=== PATIENT | female | born 1995 | race Two or more races ===

== ENCOUNTER 2017-05-26 11:46 | Emergency (ER) | payer BC ==
[~2017-05-26] VITALS: Ht 157.5 cm; Wt 131.5 kg
[~2017-05-26 11:46] MED LIST: CYCL10TA2 PO; IBUP-1007 PO
[2017-05-26 12:04] VITALS: BP 162/106
--- NOTE | 2017-05-26 12:43 | PHYS DOC ---
Past Medical History Past Medical History: No Pertinent History Additional Past Medical Histor: Kidney Problem. Past Surgical History: Tonsillectomy, Other Additional Past Surgical Histo: Nephrectomy Alcohol Use: None Drug Use: None Adult General Chief Complaint Chief Complaint: MULTIPLE COMPLAINTS [facility] HPI Patient is a 21 year old female presents to the emergency department stating that she was at work when she felt that she's been extremely tired. She states that she has a headache on the right side of her head and in the right occipital area. She is also complaining of congestion with a sore throat. She states that today when she was turning she developed numbness on the left side of her nose her left lips and felt that her left hand was numb. She states that she has weakness in the left hand. Patient states she did take an Excedrin for her headache which made the headache pain worse. She does state that she has maxillary sinus pressure on the right. She continues to state that she had double vision. Patient's blood pressure was elevated here in the emergency department. She denies chest pain however does state that she's had a cough and feels somewhat short of air. Patient states that she did take NyQuil last night. Review of Systems Review of Systems Constitutional: Denies fever or chills [] Eyes: Denies change in visual acuity, redness, or eye pain complain of double vision HENT: Congestion with sore throat Respiratory: Complaining of cough and occasional shortness of air Cardiovascular: No additional information not addressed in HPI [] GI: Denies abdominal pain, nausea, vomiting, bloody stools or diarrhea [] : Denies dysuria or hematuria [] Musculoskeletal: Denies back pain or joint pain [] Integument: Denies rash or skin lesions [] Neurologic: headache, denies focal weakness or sensory changes [] Endocrine: Denies polyuria or polydipsia [] Current Medications Current Medications Current Medications Medications (Trade) Dose Ordered Sig/Kaitlin Start Time Stop Time Status Last Admin Dose Admin Ibuprofen (Motrin) 800 mg 1X ONCE 05/26/17 14:00 05/26/17 14:01 DC 05/26/17 14:04 800 MG Pseudoephedrine HCl (Sudafed) 30 mg 1X ONCE 05/26/17 14:00 05/26/17 14:01 DC 05/26/17 14:03 30 MG Allergies Allergies Allergies Coded Allergies Type Severity Reaction Last Updated Verified No Known Drug Allergies 04/10/15 No Physical Exam Physical Exam Constitutional: Well developed, well nourished, no acute distress, non-toxic appearance. [] HENT: Normocephalic, atraumatic, bilateral external ears normal, oropharynx moist, no oral exudates, nose normal. Bilateral tympanic membranes appear to be normal. Throat with redness and postnasal drip noted. No exudate was noted. Anterior cervical adenopathy negative Eyes: PERRLA, EOMI, conjunctiva normal, no discharge. [] Neck: Normal range of motion, no tenderness, supple, no stridor. [] Cardiovascular:Heart rate regular rhythm, no murmur [] Lungs & Thorax: Bilateral breath sounds clear to auscultation [] Skin: Warm, dry, no erythema, no rash. [] Back: No tenderness Extremities: No tenderness, no cyanosis, no clubbing, ROM intact, no edema. Peripheral pulses 2+ cap refill brisk less than 2 seconds. Neurologic: Alert and oriented X 3, normal motor function, normal sensory function, no focal deficits noted. Cranial nerves II through XII intact. 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 Stroke scale is 0 Psychologic: Affect normal, judgement normal, mood normal. [] Current Patient Data Vital Signs Vital Signs Date Time Temp Pulse Resp B/P (MAP) Pulse Ox O2 Delivery O2 Flow Rate FiO2 05/26/17 12:04 99.0 80 20 99 Room Air 99.0 Lab Values Laboratory Tests Test 05/26/17 12:57 05/26/17 13:00 05/26/17 14:15 POC Urine HCG, Qualitative Hcg negative (Negative) Urine Collection Type Unknown Urine Color Red Urine Clarity Cloudy Urine pH 7.5 Urine Specific [place] 1.010 Urine Protein mg/dL (NEG-TRACE) Urine Glucose (UA) Negative mg/dL (NEG) Urine Ketones (Stick) mg/dL (NEG) Urine Blood Large (NEG) Urine Nitrite Negative (NEG) Urine Bilirubin Negative (NEG) Urine Urobilinogen Dipstick 0.2 mg/dL (0.2 mg/dL) Urine Leukocyte Esterase (NEG) Urine RBC >40 /HPF (0-2) Urine WBC 0 /HPF (0-4) Urine Bacteria 0 /HPF (0-FEW) White Blood Count 13.6 x10^3/uL (4.0-11.0) H Red Blood Count 4.09 x10^6/uL (3.50-5.40) Hemoglobin 11.1 g/dL (12.0-15.5) L Hematocrit 33.0 % (36.0-47.0) L Mean Corpuscular Volume 81 fL (79-100) Mean Corpuscular Hemoglobin 27 pg (25-35) Mean Corpuscular Hemoglobin Concent 34 g/dL (31-37) Red Cell Distribution Width 14.8 % (11.5-14.5) H Platelet Count 333 x10^3/uL (140-400) Neutrophils (%) (Auto) 72 % (31-73) Lymphocytes (%) (Auto) 19 % (24-48) L Monocytes (%) (Auto) 6 % (0-9) Eosinophils (%) (Auto) 2 % (0-3) Basophils (%) (Auto) 1 % (0-3) Neutrophils # (Auto) 9.7 x10^3uL (1.8-7.7) H Lymphocytes # (Auto) 2.6 x10^3/uL (1.0-4.8) Monocytes # (Auto) 0.9 x10^3/uL (0.0-1.1) Eosinophils # (Auto) 0.3 x10^3/uL (0.0-0.7) Basophils # (Auto) 0.1 x10^3/uL (0.0-0.2) Sodium Level 140 mmol/L (136-145) Potassium Level 4.2 mmol/L (3.5-5.1) Chloride Level 106 mmol/L (98-107) Carbon Dioxide Level 27 mmol/L (21-32) Anion Gap 7 (6-14) Blood Urea Nitrogen 12 mg/dL (7-20) Creatinine 1.1 mg/dL (0.6-1.0) H Estimated GFR (Cockcroft-Gault) 63.3 BUN/Creatinine Ratio 11 (6-20) Glucose Level 95 mg/dL (70-99) Calcium Level 8.5 mg/dL (8.5-10.1) Total Bilirubin 0.4 mg/dL (0.2-1.0) Aspartate Amino Transferase (AST) 26 U/L (15-37) Alanine Aminotransferase (ALT) 47 U/L (14-59) Alkaline Phosphatase 99 U/L (46-116) Total Protein 6.9 g/dL (6.4-8.2) Albumin 3.1 g/dL (3.4-5.0) L Albumin/Globulin Ratio 0.8 (1.0-1.7) L Laboratory Tests 05/26/17 14:15 Laboratory Tests 05/26/17 14:15 EKG EKG EKG completed at 1304 with a HR 74 SR noted no STEMI per Dr Kong[] Radiology/Procedures Radiology/Procedures [][facility] [address] [place], [place] [id number] IMAGING REPORT Signed PATIENT: ELENITA JUNG ACCOUNT: [id number] : 1995 LOCATION: ER AGE: 21 SEX: F EXAM STATUS: REG ER ORD. PHYSICIAN: LESLIE CROOK APRN REASON: headache, elevated BP numbness left side of nose, lip and left hand PROCEDURE: CT HEAD WO CONTRAST Indication hypertension. Headaches. Numbness. Axial noncontrast images of the head were obtained. No prior imaging is available. The calvarium appears unremarkable and the visualized paranasal sinuses appear normal. There is slightly diminished aeration of mastoid air cells. Clinical correlation advised. There is no subdural or epidural hematoma. There is no mass or midline shift. No hemorrhage is seen. No acute or significant finding is apparent. IMPRESSION: Normal study PQRS Compliance Statement: One or more of the following individualized dose reduction techniques were utilized for this examination: 1. Automated exposure control 2. Adjustment of the mA and/or kV according to patient size 3. Use of iterative reconstruction technique DICTATED and SIGNED BY: NELY JORDAN MD DATE: 05/26/17 1328 CC: LESLIE CROOK APRN; BRYAN GARCIA; NON,STAFF ~ Course & Med Decision Making Course & Med Decision Making Pertinent Labs and Imaging studies reviewed. (See chart for details) Patient's CBC was normal with a slightly elevated white count. Urine was positive for blood. CMP was normal. CT scan of the head was normal blood pressure is 129 over 70s. Patient states that she feels much better. She states that she has been under a lot of stress. 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 Signs and symptoms to return back to emergency department been provided. All questions and concerns been answered. Patient agrees with discharge instructions treatment regimens and follow-up recommendations. [] Dragon Disclaimer Dragon Disclaimer This electronic medical record was generated, in whole or in part, using a voice recognition dictation system. Departure Departure Impression: Primary Impression: Headache Additional Impression: URI (upper respiratory infection) Disposition: HOME, SELF-CARE Condition: STABLE Referrals: BRYAN GARCIA (PCP) Patient Instructions: General Headache Without Cause, Upper Respiratory Infection, Adult, [id number] Additional Instructions: Activity as tolerated Medication as prescribed Sudafed and Mucinex DM as directed by manufacture. Drink plenty of fluids Followup with primary care provider Return to emergency department as needed for signs and symptoms that become worse Scripts Amoxicillin/Potassium Clav (AUGMENTIN 875-125 TABLET) 1 Each Tablet 1 TAB PO BID, #20 TAB Prov: LESLIE CROOK WHOLESALE BUYER 05/26/17 Problem Qualifiers Primary Impression: Headache Headache type: unspecified Headache chronicity pattern: unspecified pattern Intractability: not intractable Qualified Codes: R51 - Headache Additional Impression: URI (upper respiratory infection) URI type: unspecified URI Qualified Codes: J06.9 - Acute upper respiratory infection, unspecified LESLIE CROOK WHOLESALE BUYER May 26, 2017 12:43
--- NOTE | 2017-05-26 13:10 | EKG ---
[facility] [address] [place] [address] Test Date: 2017-05-26 Test Time: 13:04:06 Pat Name: ELENITA JUNG Department: Room: Gender: F Stay Cutter: : 1995 Requested By: LESLIE CROOK Order Number: [id number] Reading MD: Latisha Mccain Measurements Intervals [place] Rate: 74 P: 50 ND: 146 QRS: 77 QRSD: 84 T: 44 QT: 352 QTc: 391 Interpretive Statements SINUS RHYTHM NORMAL EKG Electronically Signed On 05-28-2017 19:05:24 CDT by Latisha Mccain
[2017-05-26 13:12] LABS: BILIRUBIN,URINE NEGATIVE (NEG); GLUCOSE,URINE NEGATIVE (NEG); NITRITE,URINE NEGATIVE (NEG); PH,URINE 7.5; UROBILINOGEN,URINE 0.2 mg/dL (0.2 mg/dL)
[2017-05-26 13:20] LABS: BACTERIA,URINE 0 /HPF (0-FEW); RBC,URINE >40 /HPF (0-2); WBC,URINE 0 /HPF (0-4)
--- NOTE | 2017-05-26 13:29 | RAD ---
Indication hypertension. Headaches. Numbness. Axial noncontrast images of the head were obtained. No prior imaging is available. The calvarium appears unremarkable and the visualized paranasal sinuses appear normal. There is slightly diminished aeration of mastoid air cells. Clinical correlation advised. There is no subdural or epidural hematoma. There is no mass or midline shift. No hemorrhage is seen. No acute or significant finding is apparent. IMPRESSION: Normal study PQRS Compliance Statement: One or more of the following individualized dose reduction techniques were utilized for this examination: 1. Automated exposure control 2. Adjustment of the mA and/or kV according to patient size 3. Use of iterative reconstruction technique
[2017-05-26] MEDS ORDERED: PSEUDOEPHEDRINE 30 MG TABLET. PO ONE (14:00)
[2017-05-26] MEDS ORDERED: IBUPROFEN 800 MG TABLET. PO ONE (14:00)
[2017-05-26 14:27] LABS: BASO # 0.1 x10^3/uL (0.0-0.2); BASO % 1 % (0-3); EOS % 2 % (0-3); HEMOGLOBIN 11.1 g/dL (12.0-15.5); LYMPH # 2.6 x10^3/uL (1.0-4.8); LYMPH % 19 % (24-48); MEAN CORPUSCULAR HEMOGLOBIN 27 pg (25-35); MEAN CORPUSCULAR HGB CONC 34 g/dL (31-37); MEAN CORPUSCULAR VOLUME 81 fL (79-100); MONO % 6 % (0-9); NEUT % 72 % (31-73); PLATELET COUNT 333 x10^3/uL (140-400); RED BLOOD COUNT 4.09 x10^6/uL (3.50-5.40); RED CELL DISTRIBUTION WIDTH 14.8 % (11.5-14.5); WHITE BLOOD COUNT 13.6 x10^3/uL (4.0-11.0)
[2017-05-26 14:35] LABS: CALCIUM 8.5 mg/dL (8.5-10.1); CREATININE 1.1 mg/dL (0.6-1.0); GFR 63.3; POTASSIUM 4.2 mmol/L (3.5-5.1)
[2017-05-26 14:41] LABS: ALBUMIN 3.1 g/dL (3.4-5.0); ALBUMIN/GLOBULIN RATIO 0.8 (1.0-1.7); TOTAL BILIRUBIN 0.4 mg/dL (0.2-1.0); TOTAL PROTEIN 6.9 g/dL (6.4-8.2)
[2017-05-26] MEDS ORDERED: AMOX1TAB61 PO (15:11)
[2017-05-26] MEDS ORDERED: METOCLOPRAMIDE 10 MG TABLET. PO ONE (15:15)
[2017-05-26] MEDS ORDERED: diphenhydrAMINE HCL 25 MG CAPSULE PO ONE (15:15)
== END 2017-05-26 15:47 | disposition home or self-care (01) ==
LOC: ER 11:46
DX: R51 Headache (principal); J06.9 Acute upper respiratory infection, unspecified
CPT/HCPCS: 36415; 70450; 80053; 81001; 81025; 85025; 93005; 99285; J8597; Q0163

== ENCOUNTER 2018-01-19 15:13 | Emergency (ER) | payer BC ==
[2018-01-19] MEDS: LIDOCAINE WITH 8.4% SOD BICARB 3 ML DISP.SYRIN. INJ (16:00)
== END 2018-01-19 16:18 | disposition home or self-care (01) ==
LOC: ER 15:13
DX: L02.31 Cutaneous abscess of buttock (principal)
CPT/HCPCS: 10060; 99283

== ENCOUNTER 2021-07-30 16:18 | Emergency (ER) | payer BC, OTHER ==
[~2021-07-30] VITALS: Ht 170.2 cm; Wt 140.9 kg
[~2021-07-30 16:18] MED LIST changes: +AMOX1TAB61 PO; +CEPH500C PO; +CYCL10TA19 PO; -CYCL10TA2 PO; +HYDR-3164 PO; +SULF1TAB24 PO
[2021-07-30] MEDS ORDERED: LISINOPRIL 10 MG TABLET PO ONE (17:15)
[2021-07-30] MEDS ORDERED: LISINOPRIL 10 MG TABLET ONE (17:22)
--- NOTE | 2021-07-30 17:37 | PHYS DOC ---
Past Medical History Past Medical History: No Pertinent History Additional Past Medical Histor: CKD, PTSD, preclampsia (TORI WETZEL) Past Surgical History: , Tonsillectomy, Other Additional Past Surgical Histo: nephrectomy- R (TORI WETZEL) Smoking Status: Current Every Day Smoker Alcohol Use: None Drug Use: None (TORI WETZEL) General Adult EDM: Chief Complaint: NOSEBLEED HPI: HPI: Patient is a 25 year old female who presents with intermittent nosebleed for the past 3 days. Patient reports that her nose will bleed 23 times per day for a period of about 30 minutes for the past 3 days. Today, she was driving when it began bleeding. She got anxious and pulled over. She denies active bleeding while in the emergency department, but is concerned that this happens repeatedly. Patient denies weakness, lightheadedness, headache (TORI WETZEL) Review of Systems: Review of Systems: Constitutional: Denies fever or chills. Eyes: Denies change in visual acuity or visual field deficits. HENT: See HPI Respiratory: Denies cough or shortness of breath. Cardiovascular: Denies chest pain or edema. GI: Denies abdominal pain, nausea, vomiting, bloody stools or diarrhea. : Denies dysuria or hematuria. Musculoskeletal: Denies back pain or joint pain. Integument: Denies rash or other skin lesions. Neurologic: Denies headache, focal weakness or sensory changes. (TORI WETZEL) Heart Score: C/O Chest Pain: No (TORI WETZEL) Current Medications: Current Medications Medications (Trade) Dose Ordered Sig/Kaitlin Start Time Stop Time Status Last Admin Dose Admin Lisinopril (Prinivil) 10 mg STK-MED ONCE 07/30/21 17:22 07/30/21 17:24 DC (TORI WETZEL) Allergies: Allergies: Allergies Coded Allergies Type Severity Reaction Last Updated Verified No Known Drug Allergies 04/10/15 No (TORI WETZEL) Physical Exam: PE: Constitutional: Morbidly obese, well groomed, no acute distress, non-toxic appearance. HENT: Normocephalic, atraumatic, bilateral external ears normal, oropharynx moist, some blood noted in posterior oropharynx, nose without obvious deformity or active bleeding, bilateral nares enlarged and erythematous turbinates, dried blood noted in right naris. Eyes: PERRLA, EOMI, conjunctiva normal, no discharge. Neck: Normal range of motion, no tenderness, supple, no stridor. Cardiovascular: Heart rate regular rhythm, no murmur. Lungs & Thorax: Bilateral breath sounds clear to auscultation. Skin: Warm, dry, no erythema, no rash. Neurologic: Alert and oriented x4, no focal deficits noted. (TORI WETZEL) Current Patient Data: Labs: Laboratory Tests Test 07/30/21 17:30 07/30/21 17:40 07/30/21 17:52 White Blood Count 10.0 x10^3/uL (4.0-11.0) Red Blood Count 4.18 x10^6/uL (3.50-5.40) Hemoglobin 12.0 g/dL (12.0-15.5) Hematocrit 36.4 % (36.0-47.0) Mean Corpuscular Volume 87 fL (79-100) Mean Corpuscular Hemoglobin 29 pg (25-35) Mean Corpuscular Hemoglobin Concent 33 g/dL (31-37) Red Cell Distribution Width 15.8 % (11.5-14.5) Platelet Count 344 x10^3/uL (140-400) Neutrophils (%) (Auto) 64 % (31-73) Lymphocytes (%) (Auto) 25 % (24-48) Monocytes (%) (Auto) 8 % (0-9) Eosinophils (%) (Auto) 2 % (0-3) Basophils (%) (Auto) 1 % (0-3) Neutrophils # (Auto) 6.4 x10^3/uL (1.8-7.7) Lymphocytes # (Auto) 2.5 x10^3/uL (1.0-4.8) Monocytes # (Auto) 0.8 x10^3/uL (0.0-1.1) Eosinophils # (Auto) 0.2 x10^3/uL (0.0-0.7) Basophils # (Auto) 0.1 x10^3/uL (0.0-0.2) Sodium Level 138 mmol/L (136-145) Potassium Level 4.3 mmol/L (3.5-5.1) Chloride Level 103 mmol/L (98-107) Carbon Dioxide Level 29 mmol/L (21-32) Anion Gap 6 (6-14) Blood Urea Nitrogen 23 mg/dL (7-20) Creatinine 1.4 mg/dL (0.6-1.0) Estimated GFR (Cockcroft-Gault) 46.2 BUN/Creatinine Ratio 16 (6-20) Glucose Level 101 mg/dL (70-99) Calcium Level 8.6 mg/dL (8.5-10.1) Total Bilirubin 0.5 mg/dL (0.2-1.0) Aspartate Amino Transf (AST/SGOT) 23 U/L (15-37) Alanine Aminotransferase (ALT/SGPT) 39 U/L (14-59) Alkaline Phosphatase 122 U/L (46-116) Total Protein 6.8 g/dL (6.4-8.2) Albumin 3.0 g/dL (3.4-5.0) Albumin/Globulin Ratio 0.8 (1.0-1.7) Urine Collection Type Unknown Urine Color Yellow Urine Clarity Cloudy Urine pH 6.5 (<5.0-8.0) Urine Specific [place] 1.015 (1.000-1.030) Urine Protein >=300 mg/dL (NEG-TRACE) Urine Glucose (UA) Negative mg/dL (NEG) Urine Ketones (Stick) Negative mg/dL (NEG) Urine Blood Small (NEG) Urine Nitrite Positive (NEG) Urine Bilirubin Negative (NEG) Urine Urobilinogen Dipstick 0.2 mg/dL (0.2 mg/dL) Urine Leukocyte Esterase Moderate (NEG) Urine RBC 1-2 /HPF (0-2) Urine WBC >40 /HPF (0-4) Urine Squamous Epithelial Cells Mod /LPF Urine Bacteria Moderate /HPF (0-FEW) Bedside Urine HCG, Qualitative Hcg negative (Negative) Vital Signs: Vital Signs Date Time Temp Pulse Resp B/P (MAP) Pulse Ox O2 Delivery O2 Flow Rate FiO2 07/30/21 17:57 102 18 201/95 (130) 98 Room Air 07/30/21 17:36 101 221/118 07/30/21 17:15 101 18 221/118 (152) 98 Room Air 07/30/21 16:30 98.4 102 20 222/109 (146) 100 Room Air 98.4 (TORI WETZEL) Course & Med Decision Making: Course & Med Decision Making Pertinent Labs and Imaging studies reviewed. (See chart for details) Patient is a 25-year-old female with history of hypertension and chronic kidney disease with right nephrectomy who presents with nosebleed intermittent for the past 3 days. Incidentally, her blood pressure is very high. Patient states that she takes hydrochlorothiazide only. She has not seen her primary care doctor in about 2 years, as after her preeclampsia and delivery, going to the doctor makes her extremely nervous. Patient's creatinine has gone up by 0.3 since her last visit in 2017. Patient's urine shows potential infection, however patient denies all symptoms. No treatment necessary at this time as she is non and not experiencing any symptoms of UTI. Patient's nosebleed did resume briefly while in the department. With nasal bridge pressure, the bleeding stopped. Patient does request medication going forward in case it does begin again. Had a long discussion with the patient about obtaining primary care and the importance of getting her blood pressure under control. She does request discharge and to go home. I discussed the risks of uncontrolled high blood pressure both short-term and long-term. She was provided with a list of primary care providers attached to the hospital, which she also requested. Patient understands and is agreeable to discharge plan. (TORI WETZEL) Dragon Disclaimer: Dragon Disclaimer: This electronic medical record was generated, in whole or in part, using a voice recognition dictation system. (TORI WETZEL) Departure Departure Impression: Primary Impression: Frequent epistaxis Additional Impression: High blood pressure with chronic kidney disease Qualified Codes: I12.9 - Hypertensive chronic kidney disease with stage 1 through stage 4 chronic kidney disease, or unspecified chronic kidney disease Disposition: HOME / SELF CARE / HOMELESS Condition: STABLE Referrals: NO PCP (PCP) Scripts Oxymetazoline Hcl (AFRIN) 30 Ml [place] 2 SPRAY NS PRN, #1 BOTTLE Use 2 sprays per nostril as needed for epistaxis. Prov: TORI WETZEL 07/30/21 Clonidine Hcl (CLONIDINE HCL) 0.1 Mg Tablet 1 TAB PO PRN, #20 TAB 0 Refills Take 1 tablet by mouth twice per day for blood pressure reading greater than 185/105 (If either number is above this limit, take the medication). Prov: TORI WETZEL 07/30/21 Attending Signature Attending Signature I have reviewed the PA/STERILE SUPERVISOR's note and plan of care. I was available for consultation as needed during the patient's visit in the emergency department. I agree with the clinical impression, plan, and disposition. (DYLAN CARROLL DO) TORI WETZEL Jul 30, 2021 17:37 DYLAN CARROLL DO Jul 31, 2021 23:47
[2021-07-30 17:45] LABS: BASO # 0.1 x10^3/uL (0.0-0.2); BASO % 1 % (0-3); EOS # 0.2 x10^3/uL (0.0-0.7); EOS % 2 % (0-3); HEMATOCRIT 36.4 % (36.0-47.0); LYMPH # 2.5 x10^3/uL (1.0-4.8); LYMPH % 25 % (24-48); MEAN CORPUSCULAR HEMOGLOBIN 29 pg (25-35); MEAN CORPUSCULAR HGB CONC 33 g/dL (31-37); MEAN CORPUSCULAR VOLUME 87 fL (79-100); MONO # 0.8 x10^3/uL (0.0-1.1); MONO % 8 % (0-9); NEUT # 6.4 x10^3/uL (1.8-7.7); NEUT % 64 % (31-73); PLATELET COUNT 344 x10^3/uL (140-400); RED BLOOD COUNT 4.18 x10^6/uL (3.50-5.40); RED CELL DISTRIBUTION WIDTH 15.8 % (11.5-14.5)
[2021-07-30 17:53] LABS: CALCIUM 8.6 mg/dL (8.5-10.1); CREATININE 1.4 mg/dL (0.6-1.0); GFR 46.2; POTASSIUM 4.3 mmol/L (3.5-5.1)
[2021-07-30 17:59] LABS: BILIRUBIN,URINE NEGATIVE (NEG); CLARITY,URINE CLOUDY; COLOR,URINE YELLOW; NITRITE,URINE POSITIVE (NEG); PH,URINE 6.5 (<5.0-8.0); PROTEIN,URINE >=300 mg/dL (NEG-TRACE); UROBILINOGEN,URINE 0.2 mg/dL (0.2 mg/dL)
[2021-07-30 17:59] LABS: ALBUMIN/GLOBULIN RATIO 0.8 (1.0-1.7); TOTAL BILIRUBIN 0.5 mg/dL (0.2-1.0); TOTAL PROTEIN 6.8 g/dL (6.4-8.2)
[2021-07-30 18:03] LABS: BACTERIA,URINE MODERATE /HPF (0-FEW); WBC,URINE >40 /HPF (0-4)
[2021-07-30] MEDS ORDERED: OXYM30SP25 NS (18:25)
[2021-07-30] MEDS ORDERED: CLON0.1T PO (18:25)
[2021-07-30] MEDS ORDERED: cloNIDine HCL 0.1 MG TABLET PO ONE (18:45)
[2021-07-30 19:00] VITALS: BP 221/125
== END 2021-07-30 19:00 | disposition home or self-care (01) ==
LOC: ER 16:18
DX: R04.0 Epistaxis (principal); I12.9 Hypertensive chronic kidney disease with stage 1 through stage 4 chronic kidney disease, or unspecified chronic kidney disease; N18.4 Chronic kidney disease, stage 4 (severe); F43.10 Post-traumatic stress disorder, unspecified; F17.200 Nicotine dependence, unspecified, uncomplicated
CPT/HCPCS: 36415; 80053; 81001; 81025; 85025; 87086; 99285-25